=== PATIENT | female | born 1955 | race Caucasian/White ===

== ENCOUNTER 2016-05-18 17:13 | Emergency (ER) | payer OTHER ==
[~2016-05-18] VITALS: Ht 160 cm; Wt 63.6 kg
[~2016-05-18 17:13] MED LIST: ALPR0.5T8 PO; BUPR100T7 PO; CITA40TA13 PO; GABA400C PO; ONDA-54 PO; ONDA4SOL2 PO; [UNRECOGNIZED DRUG - CODE] PO
[2016-05-18 17:22] VITALS: BP 141/92; PULSE 106; RESP 18; O2SAT 98
[2016-05-18] MEDS ORDERED: Ondansetron 2 mg/mL 2 mL Inj IVPUSH ONE ×2 (17:55→23:30)
--- NOTE | 2016-05-18 18:08 | ED.REPORT ---
HPI-General Illness Date of Service May 18, 2016 ED Provider: Poornima GrayO. A 61 year old female with a medical history including breast cancer, spinal cord tumor, migraines, chronic pain, and peripheral neuropathy presents to the ED with a thunderclap migraine onset two days ago. The patient also reports nausea, vomiting, generalized myalgias, fatigue, and cough. She denies seizure- like activity, syncope, fever, or diarrhea. She has been unable to take her chronic pain medications without vomiting them up. She took ondansetron at 1500 today. The patient has had similar symptoms in the past which were relieved with IV fluids and pain medication. She has had exposure to contacts ill with influenza. Nursing Notes Stated Complaint: SICK,VOMITTTING Chief Complaint: FLU/Cold Symptoms Nursing Notes Reviewed: Yes Allergies: Coded Allergies: codeine (Verified Allergy, Severe, 05/18/16) doxorubicin (Verified Allergy, Severe, 05/18/16) prochlorperazine (Verified Allergy, Severe, 05/18/16) seizures tamoxifen (Verified Allergy, Severe, 05/18/16) venlafaxine (Verified Allergy, Severe, 05/18/16) Quinolones (Verified Allergy, Mild, N/V, 05/18/16) metoclopramide (Verified Allergy, Mild, Anxiety; restless, 05/18/16) Opioids - Morphine Analogues (Verified Allergy, Unknown, 05/18/16) Sulfa (Sulfonamide Antibiotics) (Verified Allergy, Unknown, 05/18/16) diphenhydramine (Verified Allergy, Unknown, 05/18/16) tetracycline (Verified Allergy, Unknown, 05/18/16) Uncoded Allergies: ANTIHISTAMINE DRUGS (Allergy, Unknown, 01/17/04) ANTIPRURITIC AGENTS (Allergy, Unknown, 01/17/04) ANTIPRURITICS (Allergy, Unknown, 02/12/09) Opiate Agonists (Narcotics) (Allergy, Unknown, 01/17/04) PHENOTHIAZINES (Ingr Allergy) (Allergy, Unknown, Y, 01/17/04) Scheduled Bupropion ER (Wellbutrin SR) 100 Mg Tablet.er 100 MG PO DAILY Citalopram (Citalopram) 40 Mg Tablet 40 MG PO DAILY Gabapentin (Neurontin) 400 Mg Capsule 1,500 MG PO HS Ondansetron Liquid (Zofran Liquid) 4 Mg/5 Ml Solution 4 MG PO Q8 Scheduled PRN Alprazolam (Alprazolam) 0.5 Mg Tablet 1 MG PO TID PRN PRN For Anxiety Hydrocodone/Acetaminophen 10-325 mg (Lortab 10-325 mg Tablet) 1 Each Tablet 1 EACH PO EVERY 4 HOURS PRN PRN For Pain Ondansetron (Ondansetron) 8 Mg Tablet 8 MG PO PRN PRN PRN For Nausea General Time Seen by MD: 18:07 Chief Complaint Headache Hx Obtained From: Patient Arrived By: Walk-in Sudden in Onset?: Yes Onset Occurred: 3 days ago Symptom Duration: Since onset Location: : Head Quality: Painful Severity: Current: Moderate Severity: Maximum: Moderate Associated with: Reports: Cough, Nausea, Vomiting, Denies: Fever Pertinent Negative: Relieved by nothing Context Related History: Reports Cancer, Reports Depression, Reports GERD Recent Healthcare: No recent doctor visit Similar Sx Previous: Yes Past Medical History Past Medical History Notes: Past Medical History Resected stage II breast cancer. History of spinal cord tumor in 1991, resected at [facility]. Chronic depression. Chronic pain and peripheral neuropathy. Atrophic vaginitis. Migraines. GERD. Past Surgical History Spinal surgery for spinal cord tumor in 1991 Lumpectomy/right axillary lymphadenectomy in August 2001 Family History Extensive family history of breast cancer in her mother, at least two maternal aunts, and a cousin. She is not sure about ages at diagnosis. Her father had prostate cancer and ALS and of the latter. She had two sisters, one of whom of drug overdose. Smoking History Never Smoker Social History Other Social History: Good social support, , Local resident Ambulatory Status Independent Review of Systems Full Review of Systems Constitutional: Reports: Fatigue, Denies: Fever Respiratory: Reports: Non-productive cough GI: Reports: Nausea, Vomiting, Denies: Diarrhea Musculoskeletal: Reports: Myalgia (Generalized) Neurologic: Reports: Headache, Denies: Seizure, Syncope Complete sys rev & neg: except as marked. Physical Exam Vital Signs Vital Signs Date Time Temp Pulse Resp B/P Pulse Ox O2 Delivery O2 Flow Rate FiO2 05/19/16 00:42 97 14 144/80 95 Room Air 05/18/16 23:15 99 16 141/67 98 Room Air 05/18/16 20:44 37 94 20 160/90 100 Room Air 05/18/16 17:22 36.1 106 18 141/92 98 Room Air Initial VS: Reviewed Respiratory: Breath sounds normal, Clear to auscultation, No respiratory distress Abdomen / GI: Soft, Non-tender Skin: Warm, Dry Neurologic: Alert, Oriented, Nonfocal Psychiatric: Mood/affect normal, Behavior normal, Normal thought content Alertness: Positive: Sleeping but arousable Distress / Hydration: Positive: Distress moderate Behavior: Positive: Tearful Head / Eyes: Atraumatic, Normocephalic, PERRL (with accommodation ) ENT: Airway patent Mouth: Positive: Mucous membranes dry Neck: Atraumatic, Supple, No meningismus, Full range of motion Cardiovascular: Regular rhythm, Heart sounds NL Heart Rate / Rhythm: Positive: Tachycardia Interpretation & Diagnostics Interpretation & Diagnostics: Influenza Negative Lab Results Interpretation Result Diagram: 05/18/16 1749 05/18/16 1749 Test 05/18/16 17:49 05/18/16 19:03 White Blood Count 9.2th/mm3 (3.8-10.1) Red Blood Count 5.29mil/mm3 (3.90-5.20) Hemoglobin 16.0g/dL (12.0-15.6) Hematocrit 46.0% (35.0-46.0) Mean Corpuscular Volume 87.0fL (81-100) Mean Corpuscular Hemoglobin 30.2pg (27.0-35.0) Mean Corpuscular Hemoglobin Concent 34.8% (32.0-37.0) Red Cell Distribution Width 12.3% (12.3-15.4) Platelet Count 234bil/L (150-400) Neutrophils (%) (Auto) 81.1% (40-74) Lymphocytes (%) (Auto) 14.2% (14-46) Monocytes (%) (Auto) 4.1% (4-12) Eosinophils (%) (Auto) 0.1% (0-5) Basophils (%) (Auto) 0.2% (0-3) Sodium Level 137mEq/L (134-144) Potassium Level 3.8mEq/L (3.5-5.2) Chloride Level 98mEq/L (97-108) Carbon Dioxide Level 21mmol/L (18-29) Blood Urea Nitrogen 12mg/dL (6-24) Creatinine 0.67mg/dL (0.57-1.00) Estimat Glomerular Filtration Rate 129mL/min (>59) Glucose Level 127mg/dL (60-99) Calcium Level 9.5mg/dL (8.5-10.1) Total Bilirubin 0.4mg/dL (0.0-1.2) Aspartate Amino Transf (AST/SGOT) 14U/L (0-50) Alanine Aminotransferase (ALT/SGPT) 9U/L (0-32) Alkaline Phosphatase 84U/L (25-165) Total Protein 7.9g/dL (6.4-8.4) Albumin 4.5g/dL (3.4-5.0) Hold Sandoval Top Tube Received (Received) Hold Urine Received (Received) CT Head Interpretation IMPRESSION: 1. No acute intracranial abnormalities on this noncontrast enhanced head CT. 2. If intracranial metastasis is suspected, contrast enhanced MRI is suggested for further evaluation. Dictated by: Ila Anderson M.D. on 05/18/2016 at 21:30 Study: Head CT no contrast Interpretation / Wet Read by: Interpret - Radiologist Re-Eval/Medical Decision Med Decision/Clinical Course In spite of an inordinate amount of nausea medications and pain medications Mrs. Courtney was still having severe headache. I recommended a lumbar puncture and if that was normal admission for pain control. Both she and her disagree with this plan. They tell me that she knows her body better than most people. She would like some semblance of pain control and be discharged home. She understands the risks including subarachnoid hemorrhage meningitis and . Her does agree to bring her back if her symptoms worsen or if she develops a neck stiffness or if the change of mind about the lumbar puncture. At discharge she felt better but she was still pretty miserable. I recommend close outpatient follow-up. Source of Hx: Old records Time of Eval: 20:25 Patient Status: Condition improved Re-Evaluation/Progress Note: Patient's headache has not fully resolved. Time of Eval: 23:27 Patient Status: Condition improved Re-Evaluation/Progress Note: Discussed with patient CT and lab results. Strongly recommended LP and admit, but both patient and her decline. Patient requests pain medication and discharge. Discussed with patient diagnosis, follow-up instructions, and return to the ER instructions. Patient agrees with plan for care and all questions were addressed. Counseled Regarding: Diagnosis, Lab results, Need for follow-up, When/why to return to ED Discharge & Departure Primary Impression: Head ache Headache type: unspecified Headache chronicity pattern: acute headache Intractability: not intractable Qualified Code: R51 - Headache Disposition: Home Discharge Condition All VS Reviewed: Yes Condition: Stable Patient Instructions: Acute Headache (ED), Migraine Headache (ED) Additional Instructions: Rest tonight. Do not drive. Do not consume alcohol or any sedating medications. The CAT scan of the brain was normal. The laboratory work is normal. I would like you to set up a follow-up with her primary care physician. Call tomorrow to make this happen. Return if you have any problems or any worsening symptoms. Return if developing a fever or a stiff neck. As we discussed I recommend a spinal tap/lumbar puncture to rule out bleeding or infection as the cause of your pain. Return right away if you change your mind about this procedure or if you develop a fever, rash or neck stiffness. You may come back any time for this. Referrals: Nicolas Leiva MD (PCP) Scribe Attestation Portions of this note were transcribed by Aislinn Monroe. I, Dr. Davila, personally performed the history, physical exam, and medical decision-making; I reviewed and confirmed the accuracy of the information in the transcribed note. Signed by: Megan Davis, 05/19/2016, 00:57 copies to: Nicolas Leiva MD, Todd P DO May 18, 2016 18:08 AISLINN MONROE May 18, 2016 19:20
[2016-05-18 18:15] LABS: BASOPHILS % (AUTO) 0.2 % (0-3); EOSINOPHILS % (AUTO) 0.1 % (0-5); MONOCYTES % (AUTO) 4.1 % (4-12); Mean Corpuscular Hemoglobin 30.2 pg (27.0-35.0); NEUTROPHILS % (AUTO) 81.1 % (40-74); Platelet Count 234 bil/L (150-400)
[2016-05-18] MEDS ORDERED: 0.9% Sodium Chloride 1,000 ML IV SCH (19:10)
[2016-05-18] MEDS ORDERED: Dexamethasone 10 mg/mL Inj IVPUSH ONE (19:10)
[2016-05-18] MEDS: Dexamethasone Inj 10 MG in 0.9% Sodium Chloride-Pha MIX 50 ML IV ONE ×2 (19:20→20:10)
[2016-05-18] MEDS ORDERED: HYDROmorphone 0.5 mg/0.5 mL iSecure Syringe IVPUSH PRN (20:30)
[2016-05-18 20:44] VITALS: BP 160/90; PULSE 94; RESP 20; O2SAT 100
[2016-05-18] MEDS ORDERED: Promethazine Inj 12.5 MG in Dextrose 5%-Pha MIX 50 ML IV ONE (20:55)
[2016-05-18] MEDS ORDERED: 0.9% Sodium Chloride 1,000 ML IV ONE (20:55)
--- NOTE | 2016-05-18 21:36 | DRSVH ---
PROCEDURE: CT BRAIN WITHOUT CONTRAST ([id number]) INDICATIONS: headache, vomiting, hx of breast cancer TECHNIQUE: Noncontrast 4.5 mm thick angled axial sections acquired from the foramen magnum to the vertex, with c oronal reformats. COMPARISON: [facility], MR, STROKE PROTOCOL (PNL), 05/07/2013, 10:28. [facility], CT, BRAIN (TPA), 05/06/2013, 21:57. FINDINGS: Image quality: Excellent. CSF spaces: Basal cisterns are patent. No extra-axial fluid collections. Ventricles are normal in size and shape. Brain: No midline shift. No intracranial masses or hemorrhage. Caruso-white matter interface is norm al. Skull and face: Calvarium and visualized facial bones are intact, without suspicious lesions. Sinuses: Visualized sinuses and mastoids are clear. IMPRESSION: 1. No acute intracranial abnormalities on this noncontrast enhanced head CT. 2. If intracranial metastasis is suspected, contrast enhanced MRI is suggested for further evaluation . Dictated by: Ila Anderson M.D. on 05/18/2016 at 21:30 Approved by: Ila Anderson M.D. on 05/18/2016 at 21:34
[2016-05-18 23:15] VITALS: BP 141/67; PULSE 99; RESP 16; O2SAT 98
[2016-05-18] MEDS ORDERED: HYDROmorphone 1 mg/mL Inj IVPUSH ONE (23:30)
[2016-05-19 00:42] VITALS: BP 144/80; PULSE 97; RESP 14; O2SAT 95
== END 2016-05-19 00:44 | disposition home or self-care (01) ==
LOC: SED 17:13
DX: R51 Headache (principal); M79.1 Myalgia; R11.2 Nausea with vomiting, unspecified; R53.83 Other fatigue; R05 Cough; K21.9 Gastro-esophageal reflux disease without esophagitis; Z88.1 Allergy status to other antibiotic agents; Z88.2 Allergy status to sulfonamides; Z88.5 Allergy status to narcotic agent; Z88.8 Allergy status to other drugs, medicaments and biological substances
CPT/HCPCS: 36415; 70450; 80053; 85025; 87804; 96361; 96365; 96366; 96375; 96376; 99285; J1100; J1170; J2060; J2405; J2550; J7030